=== PATIENT | female | born 1990 | race Caucasian/White ===

== ENCOUNTER 2022-06-04 12:02 | Inpatient (IN) | payer BC ==
[~2022-06-04] VITALS: Ht 165.1 cm; Wt 63.0 kg
[2022-06-04] MEDS ORDERED: SODIUM CHLORIDE 0.9% 1,000 ML IV ONE (12:45)
[2022-06-04] MEDS ORDERED: MORPHINE SULFATE 4 MG/ML CPJ (NOT FOR IM USE) IV ONE (13:00)
[2022-06-04] MEDS ORDERED: ONDANSETRON HCL 4MG/2ML INJ IV ONE (13:15)
[2022-06-04 13:54] LABS: BASOPHILS % 0.3 % (0.0-2.0); EOSINOPHILS % 0.2 % (0.0-5.0); HEMATOCRIT. 32.1 % (36.0-48.0); HEMOGLOBIN. 11.1 g/dL (12.0-16.0); LYMPHOCYTES % 14.1 % (20.0-50.0); MEAN CORPUSCULAR HEMOGLOBIN 30.8 pg (28.0-32.0); MEAN CORPUSCULAR VOLUME 88.9 fL (81.0-99.0); MEAN PLATELET VOLUME 8.6 fl (7.4-10.4); MONOCYTES % 5.2 % (2.0-8.0); NEUTROPHILS % 80.2 % (40.0-76.0); PLATELET 249 x1000/uL (130-400); RED BLOOD CELL COUNT 3.61 mill/uL (4.2-5.4)
[2022-06-04 16:00] VITALS: BP 117/62
[2022-06-04] MEDS ORDERED: MORPHINE SULFATE 4 MG/ML CPJ (NOT FOR IM USE) IV NR (17:00)
[2022-06-04] MEDS ORDERED: ONDANSETRON HCL 4MG/2ML INJ IV NR (17:00)
[2022-06-04] MEDS: LACTATED RINGERS 1,000 ML IV SCH (17:19)
[2022-06-04] MEDS ORDERED: PROPOFOL 200MG/20ML VIAL IV ONE (19:07)
[2022-06-04] MEDS ORDERED: DEXAMETHASONE 4MG/ML 1ML VIAL ONE (19:29)
[2022-06-04] MEDS ORDERED: ONDANSETRON HCL 4MG/2ML INJ ONE (19:29)
[2022-06-04] MEDS ORDERED: MIDAZOLAM HCL 2 MG/2 ML VIAL ONE (19:30)
[2022-06-04] MEDS ORDERED: SUCCINYLCHOLINE CHLORIDE 200MG/10ML IV ONE (19:34)
[2022-06-04] MEDS ORDERED: LIDOCAINE HCL 1% 10 MG/ML 10ML VIAL ONE (19:38)
[2022-06-04] MEDS ORDERED: FENTANYL CITRATE/PF 50MCG/ML 2ML VIAL ONE (19:42)
[2022-06-04 19:56] LABS: CHLORIDE 107 mEq/L (98-107)
[2022-06-04] MEDS ORDERED: KETOROLAC 30MG/ML VIAL ONE (19:59)
[2022-06-04] MEDS ORDERED: FENTANYL CITRATE/PF 50MCG/ML 2ML VIAL IV PRN (20:00)
[2022-06-04] MEDS ORDERED: OXYTOCIN 10 UNITS/ML 1ML ONE (20:13)
[2022-06-04 20:18] LABS: B-HCG QUANTITATIVE 96525 mIU/mL (<3)
[2022-06-04] MEDS ORDERED: MISOPROSTOL 200MCG TABLET RC NR (20:30)
[2022-06-04] MEDS ORDERED: MEPERIDINE HCL/PF 25MG/ML CPJ IV NR (21:19)
[2022-06-04] MEDS ORDERED: OXYTOCIN 30 UNITS/500ML NS PMX 500 ML IV ONE (21:30)
[2022-06-04] MEDS ORDERED: ONDANSETRON HCL 4MG/2ML INJ IV PRN (22:15)
[2022-06-04] MEDS ORDERED: MORPHINE SULFATE 2 MG/ML CPJ (NOT FOR IM USE) IV PRN (22:15)
[2022-06-04 22:43] LABS: HEMATOCRIT 23.2 % (36.0-48.0); HEMOGLOBIN 7.7 g/dL (12.0-16.0); MEAN CORPUSCULAR HEMOGLOBIN 30.2 pg (28.0-32.0); MEAN CORPUSCULAR VOLUME 90.6 fL (81.0-99.0); PLATELET 216 x1000/uL (130-400); RED BLOOD CELL COUNT 2.56 mill/uL (4.2-5.4); RED CELL DISTRIBUTION WIDTH 13.1 % (11.6-14.6)
[2022-06-04 23:15] VITALS: BP 109/67
[2022-06-05] VITALS (11 sets, daily range): BP systolic 89–111; BP diastolic 39–67
[2022-06-05] MEDS: LACTATED RINGERS 1,000 ML IV SCH ×4 (06:02→20:53)
[2022-06-05 06:30] LABS: BASOPHILS % 0.1 % (0.0-2.0); LYMPHOCYTES % 13.6 % (20.0-50.0); MEAN CORPUSCULAR HEMOGLOBIN 31.4 pg (28.0-32.0); MEAN CORPUSCULAR VOLUME 88.1 fL (81.0-99.0); MEAN PLATELET VOLUME 7.9 fl (7.4-10.4); MONOCYTES % 5.3 % (2.0-8.0); PLATELET 162 x1000/uL (130-400); RED BLOOD CELL COUNT 1.82 mill/uL (4.2-5.4); RED CELL DISTRIBUTION WIDTH 13.5 % (11.6-14.6)
[2022-06-05 06:46] LABS: HEMOGLOBIN. 5.7 g/dL (12.0-16.0)
[2022-06-05] MEDS ORDERED: ACETAMINOPHEN 325MG TABLET PO PRN (16:30)
[2022-06-05] MEDS ORDERED: IBUPROFEN 600MG TABLET PO PRN (16:30)
[2022-06-05] MEDS: DOCUSATE SODIUM 100MG CAPSULE PO SCH (20:48)
[2022-06-05 20:59] LABS: HEMATOCRIT 24.4 % (36.0-48.0); HEMOGLOBIN 8.3 g/dL (12.0-16.0)
[2022-06-06] MEDS: LACTATED RINGERS 1,000 ML IV SCH ×2 (02:39→09:00)
[2022-06-06 04:00] VITALS: BP 107/63
[2022-06-06] MEDS: DOCUSATE SODIUM 100MG CAPSULE PO SCH (09:00)
[2022-06-06 11:25] VITALS: BP 106/66
== END 2022-06-06 11:45 | disposition home or self-care (01) | DRG 770 ==
LOC: ER 12:02 → MICUSO 14:38 → EDBEDREQ 14:40 → EDBEDREQTM 14:40 → 6EST 16:05
PROVIDERS: ADMIT Obstetrics & Gynecology; ATTEND Obstetrics & Gynecology
PROC: 10D17ZZ Extraction of Products of Conception, Retained, Via Natural or Artificial Opening (ICD-10-PCS; principal; 2022-06-04)
PROC: 30233N1 Transfusion of Nonautologous Red Blood Cells into Peripheral Vein, Percutaneous Approach (ICD-10-PCS; 2022-06-05)
DX: O02.1 Missed abortion (principal); O03.39 Incomplete spontaneous abortion with other complications; D64.9 Anemia, unspecified; Z20.822 Contact with and (suspected) exposure to COVID-19
CPT/HCPCS: 36415; 76801; 80053; 84702; 85014; 85018; 85025; 85027; 86850; 86900; 86920; 87426; 88305; 99291; J0330; J1100; J1885; J2175; J2250; J2270; J2405; J2704; J3010; J3490; J7030; J7120; P9016; J2590